=== PATIENT | female | born 1975 | race Caucasian/White ===

== ENCOUNTER 2019-01-25 11:06 | Day surgery (SDC) | payer OTHER ==
--- NOTE | 2019-01-24 21:42 | PDGENHP ---
History and Physical - Chief Complaint LEFT HIP PAIN - History of Present Illness 1.~~~Bilateral~Hip Dyplasia; LEFT SIDE SYMPTOMATIC 2.~~~Right~Femoroacetabular impingement (KASSANDRA) Cam type 3. ~~History of Left Hip Arthroscopy: 2011 HISTORY OF PRESENT ILLNESS: Cielois a~43 y.o.~very~~active~female~who I have had the pleasure to consult on today.~I have enjoyed meeting her.~She~lives in [place].~~Brittany~works as a physical therapist.~~She~is ;~she~has 2~children. ~Brittany~enjoys walking, hiking, weights. Brittany's~left~hip pain~started in 2011, with~no~recalled trauma or injury, and with ~no~previous complaints.~Brittany~does not have~a known history of hip dysplasia. Brittany had a~Left hip Arthroscopy in 2013~in [place].~~For~2.5-3 years~she had~ 100% relief,~but then~pain started~in~August 2017 after doing tiling where she was doing deep squats. Presentation today is of~anterior, posterior, lateral~left~hip pain. ~The hip~ does~wake her~at night and~does not~click and catch on~her. Sitting~can be a real struggle~for her.~Brittany~does not~report suffering from lower back pain episodes. Brittany~has~participated in physical therapy (over 6 weeks)~and has~tried other conservative measures including Left cortisone~hip injections~(no immediate but a few weeks relief) 10/2013~, chiropractic treatments and massage therapy.~She~ has not~received sufficient symptomatic improvement. Brittany~has~utilized medication for pain management, including NSAID.~Brittany~has used medication since the pain began. Brittany~denies issues with the right~hip. ~ Brittany~understands that~she~has a hip and pelvis problem which should be researched and wishes to get a better understanding of~her~hip status, followed by an establishment of a treatment strategy, hoping~she~would be able to get back to~her~well being active life. History: Past medical history:~~ Patient~~has a past medical history of Hypothyroid. Relevant familial history:~None which is relevant~ Past surgical history:~ No. Surgery Anesthesia 1 Left Hip arthroscopy general 2 Left wrist general 3 Right Tib/Fib ORIF general Brittany~denies problematic issues with general anesthesia in the past. I have reviewed, verified and agree with the past medical, surgical, family and social history. Current Medications:~has a current medication list which includes the following prescription(s): ibuprofen and levothyroxine. ALLERGIES:~has No Known Allergies. Objective: Physical Examination: Brittany~is 5~feet~3~inches tall and weighs~140~Lbs. Brittany~is AAO x3; she~is well- nourished, in NAD. Skin is warm and dry. ~Breathing is non-labored. ~CV with RRR by pulse. Abdomen is soft, NTND. Currently,~she~walks with a~normal~gait. Trendelenburg sign is~negative~and proprioception~is normal,~both~sides. She~presents~with no~signs of joint laxity.~Beightons Score:~0 Lower spine examination is~negative~for sciatic or femoral nerve irritation with negative~SLR &~femoral stretch tests. Range of motion of the spine is normal~for flexion, extension, and rotations,~with no~associated pain. Strength, Sensation and pulses are~normal -~bilaterally Ankles and knees exams are~normal~and~no~mal-alignment is evident.~ She~has~no leg length discrepancy. Thigh circumference is~symmetric~with no evidence for muscle atrophy~on both~ sides. Hip ROM (degrees): FL ER At 90~hip FL IR At 90~hip FL AB AD EX IR Neutral hip ER Neutral hip R 105 45 10 40 5 10 35 45 L 105 50 10-15 35 5 10 35 40 Specific hip and pelvis tests: Impingement Test ROYAL Roll Add. Longus R Negative Negative Negative Negative L +++ +++ Negative Negative Glut. Med ITB Posterior Imp R Negative 5/5 strength Negative 5/5 strength Negative L Negative 5/5 strength Negative 5/5 strength Negative Squeeze test measured~normal Bony Symphysis pubis is~pain free~to touch while concentric activity of the rectus abdominis, does not~produce pain at its insertion. Ilio Psos specific tests are~negative for pain during cycling for~both hips~and no snap. HF has~good strength and no pain~both hips. Posterior~capsule tenderness Left Hip Greater trochanteric burse is~painful~on the right hip. Piriformis tests: FAIR is~negative~,~with no~local signs of neuritis related to sciatic nerve. SIJs examination is~normal~with~normal~ROYAL in relation and local tenderness. Hamstrings tests are~negative~functional contraction and negative~tendinopathy both hips. On a daily basis, the following percentages reflect~Brittany's overall total pain: Deep hip:~100% Imaging: Radiology studies which I~have personally reviewed, analyzed and measured are below: XR: AP of the hip and pelvis: Performed in a~good~technique Coccyx to pubic symphysis distance~1.5~cm. 0~degrees [place]~Lines are preserved. Minimal~Pathological signs are seen in the Symphysis Pubis.~ Minimal~Pathological signs are seen at the Ischial~tuberosity. ~ Specific measurements show: NSA~ LCE Sourcil~Angle Sharp's angle Lat. Cam Lat. Pincer C.Over~sign Head~Coverage % ATDmm R N 13 9 51 + - - 63 N L N 19 10 48 + - - 72 N Pos. wall sign ISS NAD ~~Dysplasia Comments R Negative Negative 19~mm +++ L Negative Negative 16~mm +++ Sclerosis Sup. Lat. OA Cysts Joint Space-WBZ Joint Space-Medial R + + Negative 4.1~mm 5.3~mm L + + Negative 4.7~mm 4.6~mm X Table lateral: Anterior cam lesion is~seen~on the right hip. Alpha Angle: ~ Right~70~dergrees Left~42~degrees Impression and plan:~ Brittany~is a~43 y.o.~active female~suffering from symptomatic~Left~hip pain due to Hip Dysplasia and possible residual~Femoroacetabular impingement (KASSANDRA)~Cam type, ~with~resultant labral tear causing significant disability to~her~and altering~ her~sport and life activities. Physical examination, imaging, and~her~story correspond with the diagnosis mentioned above. I explained that hip dysplasia is a condition wherein the hip joint has excessive play~and instability due to a variety of factors, including the depth and adequacy of the socket, the orientation of the femur bone, and ligament laxity around the hip joint. Dysplasia ranges in severity from borderline to constantino, with treatment options being specific to the specific nature of the problem. Left untreated, the instability in the hip joint can cause progressive tearing of the labrum and deterioration of the surface cartilage, ultimately resulting in progressive osteoarthritis of the hip. I explained that femoroacetabular impingement (KASSANDRA - Cam type) arises due to a bony or soft tissue conflict between the femur (ball) and acetabulum (socket) caused by an abnormality in the shape of the femoral head and neck. Over time, repetitive impingement can result in damage to the labrum and adjacent surface cartilage within the socket, ultimately giving rise to progressive osteoarthritis of the hip. I explained that although a labral tear can be a source of pain, it is rarely the root of the problem and typically occurs secondary to an underlying abnormality in the shape and mechanics of the hip joint. I reviewed conservative treatment options for Dysplasia and KASSANDRA including activity modification to avoid positions of impingement or instability, physical therapy, non-steroidal anti-inflammatory medications, and various injections (corticosteroid and PRP) aimed at reducing inflammation in the hip joint or/and preventing dynamic instability and impingement. PRP injections may promote healing and reduce symptoms in certain cases but it will not repair chronically damaged tissue. Although these measures may help to buy time~and reduce current level of symptoms, they are not a definitive solution to the problem given the underlying abnormality in the shape of the hip joint. Patients who have failed conservative management and continue to experience symptoms are candidates for definitive surgical treatment, which may consist of hip arthroscopy alone or in combination with more invasive bony realignment procedures of the hip socket and/or femur called periacetabular osteotomy (SEB) or derotational femoral osteotomy (DFO). Hip arthroscopy typically includes treating the labrum with either repair or reconstruction of the torn labrum; as well as addressing the underlying abnormalities by restoring the normal shape to the hip joint. If the cartilage is damaged a Microfracture surgical procedure may also be necessary to help stimulate the growth of fibrocartilage. If a patient requires a labral reconstruction or a Microfracture, the initial rehabilitation from the surgery may take longer, but the tank terminal gauger results are typically favorable. I have explained that because of her age and gender, the results of hip arthroscopy are less reproducible/predictable than with younger patients or male patients of the same age. I reviewed the technical aspects of periacetabular osteotomy (SEB) including risks, benefits, and expected course of recovery.~Brittany~understands that SEB is an inpatient procedure carried out through two medium sized incisions on the front and back of the hip joint. The hip socket is cut, realigned, and stabilized with 2 3 internal screws. Risks include infection, bleeding, injury to nearby nerves or vessels, stiffness, persistent pain, instability, failure of bony healing, implant related complications, and venous thromboembolic disease. Rarely, revision surgery may be required to address these problems. Risks, potential complications, side effects and recovery from surgical procedure were discussed in length. We explained how this surgery is an open procedure, and though patients tend to do well in the long-term, it involves significant pain in the first 2-4 weeks post-op and a rather lengthy rehab.~Overall recovery takes approximately 6 12~months depending on the extent of damage and degree of repair. Brittany~understands that she~will undergo hip arthroscopy 1 week prior to the SEB to address damage inside the hip joint. Brittany~understands that hip arthroscopy and SEB are two separate procedures that are best performed one week apart, with the arthroscopy commencing first to "tighten up" any pathology evident in the hip joint (labral repair, etc.) and the SEB open procedure occurring 7-10 days later to realign the acetabulum. Brittany~will review the info presented. In order to obtain more detailed information regarding the alignment, orientation, and shape of the bony hip and pelvis I will order a CT scan to be performed. The results of the CT scan, including femoral torsion and acetabular version measured values and 3D images, will aid me in deciding on the best treatment strategy and surgical pre-planning. In order to better evaluate the soft tissues and cartilage of the hip joint, I will order an MRI scan. Brittany~is going to contact us after completing her~imaging studies. Brittany~is happy with this plan. I have also supplied~her~with handouts, outlining the expected surgical treatment and rehab involved. I wish~Cieloall the best, ~~ Jake Lange, PAC History Information - Allergies/Home Medication List Allergies/Adverse Reactions: No Known Allergies Allergy (Unverified 01/20/19 09:13) Home Medications: Levothyroxine 01/20/19 [Last Taken Unknown] I have personally reviewed and updated: medical history Review of Systems Review of Systems: Physical Exam Physical Exam:
[2019-01-25] MEDS ORDERED: ACETAMINOPHEN 500 MG TAB PO ONE (11:29)
[2019-01-25] MEDS ORDERED: PREGABALIN 150 MG CAP PO ONE (11:29)
[2019-01-25] MEDS ORDERED: ceFAZolin 2 GM/DEXTROSE 100 ML IV ONE (11:29)
[2019-01-25] MEDS ORDERED: LR 1,000 ML IV ONE (11:30)
[2019-01-25] MEDS ORDERED: EPINEPHrine 30 MG/30 ML MDV (0.1 MG/0.1 ML) ONE ×2 (12:00→13:42)
[2019-01-25] MEDS ORDERED: BUPIVACAINE/EPI 0.25% 30 ML SDV ONE ×2 (12:00→13:42)
[2019-01-25] MEDS ORDERED: MIDAZOLAM 2 MG/2 ML VIAL IVP ONE (12:58)
[2019-01-25] MEDS ORDERED: SCOPOLAMINE HYDROBROMIDE 1 MG/3 DAYS PATCH TD ONE (12:58)
--- NOTE | 2019-01-25 12:59 | PDANEPAE ---
ANE Past Medical History - Cardiovascular History Hx Hypertension: No Hx Arrhythmias: No Hx Chest Pain: No Hx Coronary Artery / Peripheral Vascular Disease: No Hx CHF / Valvular Disease: No Hx Palpitations: No - Pulmonary History Hx COPD: No Hx Asthma/Reactive Airway Disease: No Hx Recent Upper Respiratory Infection: No Hx Oxygen in Use at Home: No Hx Sleep Apnea: No - Neurologic History Hx Cerebrovascular Accident: No Hx Seizures: No Hx Dementia: No - Endocrine History Hx Diabetes: No Endocrine History Comment: HYPOTHYROID - Renal History Hx Renal Disorders: No - Liver History Hx Hepatic Disorders: No - Neurological & Psychiatric Hx Hx Neurological and Psychiatric Disorders: No - Cancer History Hx Cancer: No - Congenital Disorder History Hx Congenital Disorders: No - GI History Hx Gastrointestinal Disorders: No Gastrointestinal History Comment: PARTIAL COLON RESECTION - Other Health History Other Health History: NEG - Chronic Pain History Chronic Pain: Yes (L HIP) - Surgical History Prior Surgeries: LABRAL REPAIR L. R DISTAL TIB/FIB ORIF. L WRIST NERVE RESECTION. COLON PARTIAL RESECTION ANE Review of Systems Review of Systems: - Exercise capacity METS (RN): 6 METS ANE Patient History - Allergies Allergies/Adverse Reactions: No Known Allergies Allergy (Unverified 01/20/19 09:13) - Home Medications Home Medications: Levothyroxine 01/20/19 [Last Taken 01/25/19] - NPO status NPO Since - Liquids (Date): 01/24/19 NPO Since - Liquids (Time): 21:30 NPO Since - Solids (Date): 01/24/19 NPO Since - Solids (Time): 21:30 - Smoking Hx Smoking Status: Never smoked - Family Anes Hx Family Hx Anesthesia Complications: NEG ANE Labs/Vital Signs - Vital Signs Blood Pressure: 130/80 Heart Rate: 58 Respiratory Rate: 16 O2 Sat (%): 99 Height: 160.02 cm Weight: 65.771 kg
[2019-01-25] MEDS ORDERED: PROPOFOL/EMULSION 500 MG/50 ML BOTTLE IV ONE (13:27)
[2019-01-25] MEDS ORDERED: DEXAMETHASONE 4 MG/ML VIAL ONE (13:27)
[2019-01-25] MEDS ORDERED: fentaNYL 250 MCG/5 ML INJ ONE (13:27)
[2019-01-25] MEDS ORDERED: ROCURONIUM 50 MG/5 ML VIAL ONE (13:27)
[2019-01-25] MEDS ORDERED: LIDOCAINE 2% 5 ML SDV ONE ×3 (13:33→15:32)
[2019-01-25] MEDS ORDERED: PROPOFOL 200 MG/20 ML VIAL ONE ×2 (15:29→16:07)
[2019-01-25] MEDS ORDERED: LABETALOL HCL 5 MG/ML 20 ML MDV ONE (15:37)
[2019-01-25] MEDS ORDERED: ONDANSETRON 4 MG/2 ML VIAL ONE (16:23)
[2019-01-25] MEDS ORDERED: SUGAMMADEX SODIUM 200 MG/2 ML VIAL IVP ONE (16:53)
[2019-01-25] MEDS ORDERED: fentaNYL 100 MCG/2 ML INJ ONE (17:14)
[2019-01-25] MEDS: fentaNYL 100 MCG/2 ML INJ IVP PRN ×2 (17:20→17:29)
[2019-01-25] MEDS ORDERED: PROMETHAZINE HCL 25 MG/ML INJ IVP PRN (17:20)
[2019-01-25] MEDS ORDERED: NALOXONE HCL 0.4 MG/ML INJ IVP PRN (17:20)
[2019-01-25] MEDS ORDERED: oxyCODONE IR 5 MG TAB PO PRN (17:20)
[2019-01-25] MEDS ORDERED: HYDROmorphONE/DILAUDID 1 MG/ML INJ ONE ×2 (17:33→18:05)
[2019-01-25] MEDS: HYDROmorphONE/DILAUDID 1 MG/ML INJ IVP PRN ×4 (17:34→18:06)
--- NOTE | 2019-01-25 17:53 | POSTANESTH ---
Post Anesthetic Evaluation Cardiovascular Status: Normal, Stable Respiratory Status: Normal, Stable Level of Consciousness/Mental Status: Can Participate in Eval Pain Control: Adequate, Prn Tx Ordered Nausea/Vomiting Control: Adequate, Prn Tx Ordered Complications Possibly Related to Anesthesia: None Noted
[2019-01-25] MEDS ORDERED: oxyCODONE IR 5 MG TAB ONE (18:03)
[2019-01-25 19:08] VITALS: BP 126/66
== END 2019-01-25 19:08 | disposition home or self-care (01) ==
LOC: FSGY 11:06
PROVIDERS: ATTEND Orthopaedic Surgery Sports Medicine
PROC: 0SQB4ZZ Repair Left Hip Joint, Percutaneous Endoscopic Approach (ICD-10-PCS; principal; 2019-01-25 14:45)
DX: M25.852 Other specified joint disorders, left hip (principal); Q65.89 Other specified congenital deformities of hip; E03.9 Hypothyroidism, unspecified
CPT/HCPCS: C1713; J0171; J0690; J1100; J1170; J2250; J2405; J2704; J3010

== ENCOUNTER 2019-01-29 05:51 | Inpatient (IN) | payer OTHER ==
--- NOTE | 2019-01-25 12:55 | PDANEPAE ---
ANE History of Present Illness L hip labral repair ANE Past Medical History - Cardiovascular History Hx Hypertension: No Hx Arrhythmias: No Hx Chest Pain: No Hx Coronary Artery / Peripheral Vascular Disease: No Hx CHF / Valvular Disease: No Hx Palpitations: No - Pulmonary History Hx COPD: No Hx Asthma/Reactive Airway Disease: No Hx Recent Upper Respiratory Infection: No Hx Oxygen in Use at Home: No Hx Sleep Apnea: Yes Sleep Apnea Screening Result - Last Documented: Negative - Neurologic History Hx Cerebrovascular Accident: No Hx Seizures: No Hx Dementia: No - Endocrine History Hx Diabetes: No Hypothyroid: Yes Hyperthyroid: No Obesity: no Endocrine History Comment: HYPOTHYROID - Renal History Hx Renal Disorders: No - Liver History Hx Hepatic Disorders: No - Neurological & Psychiatric Hx Hx Neurological and Psychiatric Disorders: No - Cancer History Hx Cancer: No - Congenital Disorder History Hx Congenital Disorders: No - GI History GERD: no Hx Gastrointestinal Disorders: No Gastrointestinal History Comment: PARTIAL COLON RESECTION - Other Health History Other Health History: NEG - Chronic Pain History Chronic Pain: Yes (L HIP) - Surgical History Prior Surgeries: LABRAL REPAIR L. R DISTAL TIB/FIB ORIF. L WRIST NERVE RESECTION. COLON PARTIAL RESECTION ANE Review of Systems Review of Systems: - Exercise capacity METS (RN): 5 METS ANE Patient History - Allergies Allergies/Adverse Reactions: No Known Allergies Allergy (Unverified 01/20/19 09:13) - Home Medications Home Medications: Levothyroxine 01/20/19 [Last Taken 01/25/19] - Anes Hx Anes Hx: no prior problems - Smoking Hx Smoking Status: Never smoked Marijuana use: No - Alcohol Use Alcohol Use: Other (up to 3 drinks/night) - Family Anes Hx Family Anes Hx: none Family Hx Anesthesia Complications: NEG ANE Labs/Vital Signs - Vital Signs Height: 160.02 cm Weight: 65.771 kg ANE Physical Exam - Airway Mallampati Score: Class 1 Mouth exam: normal dental/mouth exam - Pulmonary Pulmonary: no respiratory distress, clear to auscultation - Cardiovascular Cardiovascular: regular rate and rhythym - ASA Status ASA Status: II ANE Anesthesia Plan Anesthesia Plan: general endotracheal anesthesia
--- NOTE | 2019-01-28 21:24 | PDGENHP ---
History and Physical - Chief Complaint LEFT HIP PAIN - History of Present Illness Diagnosis: 1.~~~Bilateral~Hip Dyplasia; LEFT SIDE SYMPTOMATIC 2.~~~Right~Femoroacetabular impingement (KASSANDRA) Cam type 3. ~~History of Left Hip Arthroscopy: 2011 HISTORY OF PRESENT ILLNESS: Cielois a~43 y.o.~very~~active~female~who I have had the pleasure to consult on today.~I have enjoyed meeting her.~She~lives in [place].~~Brittany~works as a physical therapist.~~She~is ;~she~has 2~children. ~Brittany~enjoys walking, hiking, weights. Brittany's~left~hip pain~started in 2011, with~no~recalled trauma or injury, and with ~no~previous complaints.~Brittany~does not have~a known history of hip dysplasia. Brittany had a~Left hip Arthroscopy in 2013~in [place].~~For~2.5-3 years~she had~ 100% relief,~but then~pain started~in~August 2017 after doing tiling where she was doing deep squats. Presentation today is of~anterior, posterior, lateral~left~hip pain. ~The hip~ does~wake her~at night and~does not~click and catch on~her. Sitting~can be a real struggle~for her.~Brittany~does not~report suffering from lower back pain episodes. Brittany~has~participated in physical therapy (over 6 weeks)~and has~tried other conservative measures including Left cortisone~hip injections~(no immediate but a few weeks relief) 10/2013~, chiropractic treatments and massage therapy.~She~ has not~received sufficient symptomatic improvement. Brittany~has~utilized medication for pain management, including NSAID.~Brittany~has used medication since the pain began. Brittany~denies issues with the right~hip. ~ Brittany~understands that~she~has a hip and pelvis problem which should be researched and wishes to get a better understanding of~her~hip status, followed by an establishment of a treatment strategy, hoping~she~would be able to get back to~her~well being active life. History: Past medical history:~~ Patient~~has a past medical history of Hypothyroid. Relevant familial history:~None which is relevant~ Past surgical history:~ No. Surgery Anesthesia 1 Left Hip arthroscopy general 2 Left wrist general 3 Right Tib/Fib ORIF general Brittany~denies problematic issues with general anesthesia in the past. I have reviewed, verified and agree with the past medical, surgical, family and social history. Current Medications:~has a current medication list which includes the following prescription(s): ibuprofen and levothyroxine. ALLERGIES:~has No Known Allergies. Objective: Physical Examination: Brittany~is 5~feet~3~inches tall and weighs~140~Lbs. Brittany~is AAO x3; she~is well- nourished, in NAD. Skin is warm and dry. ~Breathing is non-labored. ~CV with RRR by pulse. Abdomen is soft, NTND. Currently,~she~walks with a~normal~gait. Trendelenburg sign is~negative~and proprioception~is normal,~both~sides. She~presents~with no~signs of joint laxity.~Beightons Score:~0 Lower spine examination is~negative~for sciatic or femoral nerve irritation with negative~SLR &~femoral stretch tests. Range of motion of the spine is normal~for flexion, extension, and rotations,~with no~associated pain. Strength, Sensation and pulses are~normal -~bilaterally Ankles and knees exams are~normal~and~no~mal-alignment is evident.~ She~has~no leg length discrepancy. Thigh circumference is~symmetric~with no evidence for muscle atrophy~on both~ sides. Hip ROM (degrees): FL ER At 90~hip FL IR At 90~hip FL AB AD EX IR Neutral hip ER Neutral hip R 105 45 10 40 5 10 35 45 L 105 50 10-15 35 5 10 35 40 Specific hip and pelvis tests: Impingement Test ROYAL Roll Add. Longus R Negative Negative Negative Negative L +++ +++ Negative Negative Glut. Med ITB Posterior Imp R Negative 5/5 strength Negative 5/5 strength Negative L Negative 5/5 strength Negative 5/5 strength Negative Squeeze test measured~normal Bony Symphysis pubis is~pain free~to touch while concentric activity of the rectus abdominis, does not~produce pain at its insertion. Ilio Psos specific tests are~negative for pain during cycling for~both hips~and no snap. HF has~good strength and no pain~both hips. Posterior~capsule tenderness Left Hip Greater trochanteric burse is~painful~on the right hip. Piriformis tests: FAIR is~negative~,~with no~local signs of neuritis related to sciatic nerve. SIJs examination is~normal~with~normal~ROYAL in relation and local tenderness. Hamstrings tests are~negative~functional contraction and negative~tendinopathy both hips. On a daily basis, the following percentages reflect~Brittany's overall total pain: Deep hip:~100% Imaging: Radiology studies which I~have personally reviewed, analyzed and measured are below: XR: AP of the hip and pelvis: Performed in a~good~technique Coccyx to pubic symphysis distance~1.5~cm. 0~degrees [place]~Lines are preserved. Minimal~Pathological signs are seen in the Symphysis Pubis.~ Minimal~Pathological signs are seen at the Ischial~tuberosity. ~ Specific measurements show: NSA~ LCE Sourcil~Angle Sharp's angle Lat. Cam Lat. Pincer C.Over~sign Head~Coverage % ATDmm R N 13 9 51 + - - 63 N L N 19 10 48 + - - 72 N Pos. wall sign ISS NAD ~~Dysplasia Comments R Negative Negative 19~mm +++ L Negative Negative 16~mm +++ Sclerosis Sup. Lat. OA Cysts Joint Space-WBZ Joint Space-Medial R + + Negative 4.1~mm 5.3~mm L + + Negative 4.7~mm 4.6~mm X Table lateral: Anterior cam lesion is~seen~on the right hip. Alpha Angle: ~ Right~70~dergrees Left~42~degrees Impression and plan:~ Brittany~is a~43 y.o.~active female~suffering from symptomatic~Left~hip pain due to Hip Dysplasia and possible residual~Femoroacetabular impingement (KASSANDRA)~Cam type, ~with~resultant labral tear causing significant disability to~her~and altering~ her~sport and life activities. Physical examination, imaging, and~her~story correspond with the diagnosis mentioned above. I explained that hip dysplasia is a condition wherein the hip joint has excessive play~and instability due to a variety of factors, including the depth and adequacy of the socket, the orientation of the femur bone, and ligament laxity around the hip joint. Dysplasia ranges in severity from borderline to constantino, with treatment options being specific to the specific nature of the problem. Left untreated, the instability in the hip joint can cause progressive tearing of the labrum and deterioration of the surface cartilage, ultimately resulting in progressive osteoarthritis of the hip. I explained that femoroacetabular impingement (KASSANDRA - Cam type) arises due to a bony or soft tissue conflict between the femur (ball) and acetabulum (socket) caused by an abnormality in the shape of the femoral head and neck. Over time, repetitive impingement can result in damage to the labrum and adjacent surface cartilage within the socket, ultimately giving rise to progressive osteoarthritis of the hip. I explained that although a labral tear can be a source of pain, it is rarely the root of the problem and typically occurs secondary to an underlying abnormality in the shape and mechanics of the hip joint. I reviewed conservative treatment options for Dysplasia and KASSANDRA including activity modification to avoid positions of impingement or instability, physical therapy, non-steroidal anti-inflammatory medications, and various injections (corticosteroid and PRP) aimed at reducing inflammation in the hip joint or/and preventing dynamic instability and impingement. PRP injections may promote healing and reduce symptoms in certain cases but it will not repair chronically damaged tissue. Although these measures may help to buy time~and reduce current level of symptoms, they are not a definitive solution to the problem given the underlying abnormality in the shape of the hip joint. Patients who have failed conservative management and continue to experience symptoms are candidates for definitive surgical treatment, which may consist of hip arthroscopy alone or in combination with more invasive bony realignment procedures of the hip socket and/or femur called periacetabular osteotomy (SEB) or derotational femoral osteotomy (DFO). Hip arthroscopy typically includes treating the labrum with either repair or reconstruction of the torn labrum; as well as addressing the underlying abnormalities by restoring the normal shape to the hip joint. If the cartilage is damaged a Microfracture surgical procedure may also be necessary to help stimulate the growth of fibrocartilage. If a patient requires a labral reconstruction or a Microfracture, the initial rehabilitation from the surgery may take longer, but the shelter results are typically favorable. I have explained that because of her age and gender, the results of hip arthroscopy are less reproducible/predictable than with younger patients or male patients of the same age. I reviewed the technical aspects of periacetabular osteotomy (SEB) including risks, benefits, and expected course of recovery.~Brittany~understands that SEB is an inpatient procedure carried out through two medium sized incisions on the front and back of the hip joint. The hip socket is cut, realigned, and stabilized with 2 3 internal screws. Risks include infection, bleeding, injury to nearby nerves or vessels, stiffness, persistent pain, instability, failure of bony healing, implant related complications, and venous thromboembolic disease. Rarely, revision surgery may be required to address these problems. Risks, potential complications, side effects and recovery from surgical procedure were discussed in length. We explained how this surgery is an open procedure, and though patients tend to do well in the long-term, it involves significant pain in the first 2-4 weeks post-op and a rather lengthy rehab.~Overall recovery takes approximately 6 12~months depending on the extent of damage and degree of repair. Brittany~understands that she~will undergo hip arthroscopy 1 week prior to the SEB to address damage inside the hip joint. Brittany~understands that hip arthroscopy and SEB are two separate procedures that are best performed one week apart, with the arthroscopy commencing first to "tighten up" any pathology evident in the hip joint (labral repair, etc.) and the SEB open procedure occurring 7-10 days later to realign the acetabulum. Brittany~will review the info presented. In order to obtain more detailed information regarding the alignment, orientation, and shape of the bony hip and pelvis I will order a CT scan to be performed. The results of the CT scan, including femoral torsion and acetabular version measured values and 3D images, will aid me in deciding on the best treatment strategy and surgical pre-planning. In order to better evaluate the soft tissues and cartilage of the hip joint, I will order an MRI scan. Brittany~is going to contact us after completing her~imaging studies. Brittany~is happy with this plan. I have also supplied~her~with handouts, outlining the expected surgical treatment and rehab involved. I wish~Cieloall the best, ~~ Jake Lange, PAC History Information - Allergies/Home Medication List Allergies/Adverse Reactions: No Known Allergies Allergy (Verified 01/27/19 10:36) Home Medications: Levothyroxine 01/20/19 [Last Taken 01/25/19] I have personally reviewed and updated: medical history - Social History Smoking Status: Never smoked Alcohol Use: Other (up to 3 drinks/night) Review of Systems Review of Systems: Physical Exam Physical Exam:
[2019-01-29] MEDS ORDERED: PREGABALIN 150 MG CAP PO ONE (06:09)
[2019-01-29] MEDS ORDERED: ceFAZolin 2 GM/DEXTROSE 100 ML IV ONE (06:09)
[2019-01-29] MEDS ORDERED: TRANEXAMIC ACID 1,000 MG in NS 100 ML IV ONE (06:09)
[2019-01-29] MEDS ORDERED: ACETAMINOPHEN 500 MG TAB PO ONE (06:09)
[2019-01-29] MEDS ORDERED: SCOPOLAMINE HYDROBROMIDE 1 MG/3 DAYS PATCH TD ONE (06:09)
[2019-01-29] MEDS ORDERED: LR 1,000 ML IV ONE (06:11)
[2019-01-29] MEDS ORDERED: morphINE PF 5 MG/10 ML INJ ONE (06:39)
[2019-01-29] MEDS ORDERED: fentaNYL 100 MCG/2 ML INJ ONE ×4 (06:49→13:05)
[2019-01-29] MEDS ORDERED: DEXAMETHASONE 4 MG/ML VIAL ONE (06:49)
[2019-01-29] MEDS ORDERED: ROCURONIUM 50 MG/5 ML VIAL ONE (06:49)
[2019-01-29] MEDS ORDERED: PROPOFOL 200 MG/20 ML VIAL ONE (06:49)
[2019-01-29] MEDS ORDERED: ONDANSETRON 4 MG/2 ML VIAL ONE (06:49)
[2019-01-29] MEDS ORDERED: LIDOCAINE 2% 100 MG/5 ML SYR ONE (06:49)
[2019-01-29] MEDS ORDERED: CITRATE DEXTROSE SOLN 500 ML BAG ONE (06:52)
[2019-01-29] MEDS ORDERED: MIDAZOLAM 2 MG/2 ML VIAL IVP ONE (07:07)
--- NOTE | 2019-01-29 07:07 | PDANEPAE ---
ANE Past Medical History - Cardiovascular History Hx Hypertension: No Hx Arrhythmias: No Hx Chest Pain: No Hx Coronary Artery / Peripheral Vascular Disease: No Hx CHF / Valvular Disease: No Hx Palpitations: No - Pulmonary History Hx COPD: No Hx Asthma/Reactive Airway Disease: No Hx Recent Upper Respiratory Infection: No Hx Oxygen in Use at Home: No Hx Sleep Apnea: No Sleep Apnea Screening Result - Last Documented: Negative - Neurologic History Hx Cerebrovascular Accident: No Hx Seizures: No Hx Dementia: No - Endocrine History Hx Diabetes: No Hypothyroid: Yes Hyperthyroid: No Obesity: no Endocrine History Comment: HYPOTHYROID - Renal History Hx Renal Disorders: No - Liver History Hx Hepatic Disorders: No - Neurological & Psychiatric Hx Hx Neurological and Psychiatric Disorders: No - Cancer History Hx Cancer: No - Congenital Disorder History Hx Congenital Disorders: No - GI History GERD: no Hx Gastrointestinal Disorders: No Gastrointestinal History Comment: PARTIAL COLON RESECTION - Other Health History Other Health History: NEG - Chronic Pain History Chronic Pain: Yes (L HIP) - Surgical History Prior Surgeries: 01/25/19 left hip scope and labral repair with Yesi-Alok. R DISTAL TIB/FIB ORIF. L WRIST NERVE RESECTION. COLON PARTIAL RESECTION ANE Review of Systems Review of Systems: - Exercise capacity METS (RN): 5 METS ANE Patient History - Allergies Allergies/Adverse Reactions: No Known Allergies Allergy (Verified 01/27/19 10:36) - Home Medications Home Medications: Levothyroxine 01/20/19 [Last Taken 01/29/19 02:30] - NPO status NPO Since - Liquids (Date): 01/29/19 NPO Since - Liquids (Time): 02:30 NPO Since - Solids (Date): 01/28/19 NPO Since - Solids (Time): 21:00 - Anes Hx Anes Hx: no prior problems - Smoking Hx Smoking Status: Never smoked - Alcohol Use Alcohol Use: Other (up to 3 drinks/night) - Family Anes Hx Family Hx Anesthesia Complications: NEG ANE Labs/Vital Signs - Labs Result Diagrams: 01/29/19 06:47 - Vital Signs Blood Pressure: 128/84 Heart Rate: 75 Respiratory Rate: 14 O2 Sat (%): 99 Height: 160.02 cm Weight: 65.771 kg ANE Physical Exam - Airway Neck exam: FROM Mallampati Score: Class 2 Mouth exam: normal dental/mouth exam - Pulmonary Pulmonary: no respiratory distress, no rales or rhonchi, clear to auscultation - Cardiovascular Cardiovascular: regular rate and rhythym, no murmur, rub, or gallop - ASA Status ASA Status: II ANE Anesthesia Plan Anesthesia Plan: general endotracheal anesthesia (Spinal duramorph for POPC), spinal
[2019-01-29] MEDS ORDERED: oxyCODONE IR 5 MG TAB PO PRN (07:44)
[2019-01-29] MEDS ORDERED: ONDANSETRON 4 MG/2 ML VIAL IVP PRN ×2 (07:44→11:56)
[2019-01-29] MEDS ORDERED: PHENYLEPHRINE HCL 100 MCG/ML SYR IVP PRN (07:44)
[2019-01-29] MEDS ORDERED: MEPERIDINE 25 MG/0.5 ML AMP IVP PRN (07:44)
[2019-01-29] MEDS ORDERED: NS 500 ML IV PRN (07:44)
[2019-01-29] MEDS ORDERED: LR 500 ML IV PRN (07:44)
[2019-01-29] MEDS ORDERED: PROMETHAZINE HCL 25 MG/ML INJ IVP PRN (07:44)
[2019-01-29] MEDS ORDERED: ALBUTEROL 3 ML DEYVIAL IH PRN (07:44)
[2019-01-29] MEDS ORDERED: NALOXONE HCL 0.4 MG/ML INJ IVP PRN ×2 (07:44→11:57)
[2019-01-29] MEDS ORDERED: METOCLOPRAMIDE 10 MG/2 ML VIAL IVP PRN (07:44)
[2019-01-29] MEDS ORDERED: HYDROmorphONE/DILAUDID 1 MG/ML INJ IVP PRN (07:44)
[2019-01-29] MEDS ORDERED: ePHEDrine SULFATE 25 MG/5 ML SYR ONE ×2 (09:12→10:46)
[2019-01-29] MEDS ORDERED: ONDANSETRON DISINTEGRATING 4 MG TAB PO PRN (11:56)
[2019-01-29] MEDS ORDERED: MAGNESIUM HYDROXIDE 30 ML UDCUP PO PRN (11:56)
[2019-01-29] MEDS ORDERED: POLYETHYLENE GLYCOL 3350 17 GM PKT PO PRN (11:56)
[2019-01-29] MEDS ORDERED: ACETAMINOPHEN 325 MG TAB PO PRN (11:56)
[2019-01-29] MEDS ORDERED: LACTULOSE 20 GM/30 ML UDCUP PO PRN (11:56)
[2019-01-29] MEDS ORDERED: BISACODYL 10 MG SUPP PR PRN (11:56)
[2019-01-29] MEDS ORDERED: diphenhydrAMINE 25 MG CAP PO PRN (11:57)
[2019-01-29] MEDS ORDERED: HYDROmorphONE/DILAUDID 6 MG/30 ML PCA IV PRN (11:57)
[2019-01-29] MEDS ORDERED: oxyCODONE IR 15 MG TAB PO PRN (11:58)
[2019-01-29] MEDS: fentaNYL 100 MCG/2 ML INJ IVP PRN ×5 (12:31→13:22)
[2019-01-29] MEDS ORDERED: DIAZEPAM 5 MG TAB ONE (13:19)
[2019-01-29] MEDS: DIAZEPAM 2 MG TAB PO PRN (13:20)
--- NOTE | 2019-01-29 13:50 | PDMN ---
Medical Necessity Medical necessity: Pt meets inpt criteria per MD order and Musculoskeletal Surgery GRG, L Periacetabular osteotomy, MC IP only list. 43 y/o w/symptomatic L hip pain due to L hip dysplasia admitted for above surgery and post-op care. AUTH# [id number] APPROVED FOR CPT CODE 55642 TO BE DONE INPATIENT.
[2019-01-29] MEDS: NS 1,000 ML IV SCH (14:16)
[2019-01-29] MEDS: oxyCODONE IR 5 MG TAB PO SCH ×3 (15:44→21:05)
[2019-01-29] MEDS: NAPROXEN SODIUM 220 MG TAB PO SCH ×2 (16:33→21:04)
[2019-01-29] MEDS: SENNOSIDES/DOCUSATE SODIUM TAB PO SCH (21:05)
[2019-01-30] MEDS: NS 1,000 ML IV SCH ×3 (00:22→19:57)
[2019-01-30] MEDS: oxyCODONE IR 5 MG TAB PO SCH ×6 (02:50→22:06)
[2019-01-30] MEDS: LEVOTHYROXINE 112 MCG TAB PO SCH (05:57)
[2019-01-30] MEDS: NAPROXEN SODIUM 220 MG TAB PO SCH ×3 (08:38→22:06)
[2019-01-30] MEDS: SENNOSIDES/DOCUSATE SODIUM TAB PO SCH ×2 (08:40→22:06)
[2019-01-30] MEDS: PANTOPRAZOLE SODIUM 40 MG TAB PO SCH (08:41)
--- NOTE | 2019-01-30 13:21 | SOAPPROG ---
SOAP Progress Note Assessment/Plan: Assessment: 43 yo F POD#1 s/p L SEB, doing well. 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 Hernández prior to d/c 01/30/19 13:17 Subjective: Pt reports pain well controlled. About to work with PT. No CP/SOB. Objective: Vital Signs Temp Pulse Resp BP Pulse Ox 36.9 C 64 18 96/64 L 97 01/30/19 11:16 01/30/19 11:16 01/30/19 11:16 01/30/19 11:16 01/30/19 11:16 Laboratory Results 01/30/19 04:27 01/30/19 04:27 01/29/19 01/30/19 01/31/19 05:59 05:59 05:59 Intake Total 3424 1188 Output Total 3775 700 Balance -351 488 Gen: NAD L hip dressings c/d/i Mild ecchymosis/swelling 5/5 TA, GSC, EHL SILT throughout foot distally ICD10 Worksheet Patient Problems: Problems Problem Status Onset Hip dysplasia Acute - ICD10 Problem Qualifiers (1) Hip dysplasia
--- NOTE | 2019-01-30 14:48 | ASMTCMCOM ---
CM Note CM Note Notes: Pt had planned surgery for hip dysplasia. Pt resides with spouse and minor children. 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 Anticipate pt will d/c when medically stable and follow MD outpatient rec. No CM d/c needs identified. CM available for changes/needs. Date Signed: 01/30/2019 02:48 PM Electronically Signed By:SHAUN Polanco
--- NOTE | 2019-01-30 17:36 | POSTANESTH ---
Post Anesthetic Evaluation Cardiovascular Status: Normal, Stable, Similar to Pre-Op Cond Respiratory Status: Normal, Stable, Similar to Pre-op Cond. Level of Consciousness/Mental Status: Can Participate in Eval, Alert and Oriented Pain Control: Adequate, Prn Tx Ordered Nausea/Vomiting Control: Adequate, Prn Tx Ordered Complications Possibly Related to Anesthesia: None Noted Notes: Pt seen and examined, s/p ITM, POD1. Reports pain control very good. Able to sit up in chair. Back site c/d/i, no e/e/e. Denies GUTIERREZ/n/v/pruritis. No apparent ill effects from intrathecal narcotic.
[2019-01-30] MEDS: DIAZEPAM 2 MG TAB PO PRN (18:11)
[2019-01-31] MEDS: oxyCODONE IR 5 MG TAB PO SCH ×6 (02:01→21:58)
[2019-01-31] MEDS: LEVOTHYROXINE 112 MCG TAB PO SCH (05:48)
[2019-01-31] MEDS: PANTOPRAZOLE SODIUM 40 MG TAB PO SCH (09:27)
[2019-01-31] MEDS: NAPROXEN SODIUM 220 MG TAB PO SCH ×3 (09:27→21:57)
[2019-01-31] MEDS: SENNOSIDES/DOCUSATE SODIUM TAB PO SCH ×2 (09:28→21:59)
[2019-01-31] MEDS: ASPIRIN EC 81 MG TAB PO SCH (12:40)
[2019-01-31] MEDS: DIAZEPAM 2 MG TAB PO PRN ×2 (16:09→21:57)
--- NOTE | 2019-01-31 20:55 | SOAPPROG ---
SOAP Progress Note Assessment/Plan: Assessment: 2nd post op day Left Periacetabular Osteotomy Plan: Oxycodone Up with PT/OT SCDs/81mg Aspirin daily Pelvis X-ray on POD#3 D/C Home 01/31/19 20:44 Subjective: Brittany was seen at 1530. At that time she was well pain managed with Oxycodone. Rojo was removed yesterday and she has been up with PT/OT. She denies any cp, sob, or nausea. Objective: Vital Signs Temp Pulse Resp BP Pulse Ox 36.6 C 71 18 98/73 L 94 01/31/19 19:46 01/31/19 19:46 01/31/19 19:46 01/31/19 19:46 01/31/19 19:46 Laboratory Results 01/30/19 04:27 01/30/19 04:27 01/30/19 01/31/19 02/01/19 05:59 05:59 05:59 Intake Total 3424 7064 900 Output Total 3775 2200 Balance -351 4864 900 Well appearing in NAD Left Hip: dressings clean dry intact ecchymosis and edema some thigh numbness NVI distally full ROM of foot and ankle - Pending Discharge Pending Discharge Within 24 Hours: Yes Pending Discharge Date: 02/01/19 Pending Discharge Time: 11:00 ICD10 Worksheet Patient Problems: Problems Problem Status Onset Hip dysplasia Acute
[2019-02-01] MEDS: oxyCODONE IR 5 MG TAB PO SCH ×4 (03:00→13:46)
[2019-02-01] MEDS: LEVOTHYROXINE 112 MCG TAB PO SCH (06:13)
[2019-02-01 07:46] VITALS: BP 109/74
[2019-02-01] MEDS: SENNOSIDES/DOCUSATE SODIUM TAB PO SCH (09:13)
[2019-02-01] MEDS: NAPROXEN SODIUM 220 MG TAB PO SCH (09:14)
[2019-02-01] MEDS: PANTOPRAZOLE SODIUM 40 MG TAB PO SCH (09:15)
[2019-02-01] MEDS: ASPIRIN EC 81 MG TAB PO SCH (09:16)
--- NOTE | 2019-02-01 12:27 | ASMTLACE ---
LACE Length of stay for Answers: 3 days current admission Acuity / Level of Answers: Yes Care: Did the patient have an inpatient admission? Comorbidities - select Answers: Opioid dependence all that apply / Chronic pain Other Notes: Hypothyroid # of Emergency department Answers: 0 visits in the last 6 months Score: 11 Date Signed: 02/01/2019 12:26 PM Electronically Signed By:Marilou Brooke RN
--- NOTE | 2019-02-02 22:46 | GDS ---
[f rep st] DISCHARGE SUMMARY Brittany underwent a left periacetabular osteotomy on January 29, 2019. Intraoperatively, Rojo and spinal catheters were placed. She was well pain managed postoperatively with spinal SAGGER MAKER and oral analgesics . She was up with physical therapy her 1st postoperative day. On this day, Rojo was discontinued. Pelvis x-rays on her 3rd postoperative day showed good bone and screw fixation and she was discharge d on this day in good condition. She will be going home with sequential compression devices to be wo rn 24 hours a day, 7 days a week for 2 weeks and thereafter only at night for another week. She will be taking 81 mg baby aspirin daily, both of these for DVT prophylaxis. She will be nonweightbearing on the left lower extremity for 2 weeks until her 2 week postop appointment with Dr. Hernández. She w as given a full set of discharge instructions. She was discharged in good condition. /[id number]/MODL
== END 2019-02-01 17:17 | disposition home or self-care (01) | DRG 482 ==
LOC: FSGY 05:51 → F3E 11:56 → F3N 13:32
PROVIDERS: ADMIT Orthopaedic Surgery Sports Medicine; ATTEND Orthopaedic Surgery Sports Medicine
DX: M25.852 Other specified joint disorders, left hip (principal); Q65.89 Other specified congenital deformities of hip
CPT/HCPCS: 97116-GP; 97161-GP; 97165-GO; 97530-GP; 97535-GO; C1713; J0690; J1100; J1170; J2001; J2250; J2274; J2405; J2704; J3010